=== PATIENT | female | born 2000 | race Caucasian/White ===

== ENCOUNTER 2023-12-08 23:02 | Emergency (ER) | payer MEDICAID ==
[~2023-12-08] VITALS: Ht 154.9 cm; Wt 52.6 kg
[2023-12-08 23:11] VITALS: BP 100/72; PULSE 53; RESP 20; TEMP 98.8; O2SAT 96
[2023-12-08] MEDS: SILVER SULFADIAZINE 1% 50 GM JAR TP ONE (23:35)
[2023-12-09] MEDS: IBUPROFEN 600 MG TAB PO ONE (00:27)
[2023-12-09] MEDS ORDERED: SILVER SULFADIAZINE 1% 50 GM JAR TP ONE (00:29)
[2023-12-09] MEDS ORDERED: TRAM50TA3 PO (00:47)
[2023-12-09 00:50] VITALS: BP 100/72; PULSE 53; RESP 20; TEMP 98.8; O2SAT 96
== END 2023-12-09 00:50 | disposition home or self-care (01) ==
LOC: MED 23:02
DX: T23.231A Burn of second degree of multiple right fingers (nail), not including thumb, initial encounter (principal); X10.2XXA Contact with fats and cooking oils, initial encounter; Y93.G3 Activity, cooking and baking; Y92.89 Other specified places as the place of occurrence of the external cause; Y99.8 Other external cause status
CPT/HCPCS: 16000; 99282